=== PATIENT | male | born 1950 | race Two or more races ===

== ENCOUNTER → 2016-07-02 | Outpatient (CLI) | payer BC ==
[2013-11-04 14:42] VITALS: BP 134/77
[~2016-07-02] MED LIST: ATOR40TA59 PO; FENO160T PO; GADOBUTROL 7.5 MMOL/7.5 ML VIAL IV ONE
--- NOTE | 2016-07-02 10:54 | RAD ---
PROCEDURE MRI brain without and with contrast. HISTORY Headaches and blurred vision, lip numbness for 2 weeks TECHNIQUE Multiplanar, multisequential pre and post contrast MR imaging was performed of the brain. Contrast: 7.5 cc Gadavist COMPARISON September 05, 2015 FINDINGS Ventricles, sulci, cisterns are within normal limits in size and configuration. There is no intra-axial mass effect, midline shift, extra-axial fluid collection, or nodular parenchymal or leptomeningeal enhancement. There is no new focal signal abnormality of the brain parenchyma. There is preservation of the major arterial intracranial flow voids at skull base. There is very minimal patchy ethmoid air cell as well as mild left greater than right maxillary sinus mucosal thickening. Mastoid air cells are aerated. Cerebellar tonsils are normal in location. Nonspecific heterogeneous low signal of the marrow of nonexpanded clivus is stable. There is no new abnormality of the pineal gland or pituitary gland. IMPRESSION 1. There is no new intracranial abnormality. Electronically signed by: Anand Aguayo MD (Jul 02, 2016 10:52:40)
== END | disposition home or self-care (01) ==
LOC: MRI 09:35
PROVIDERS: ATTEND Internal Medicine
DX: R20.9 Unspecified disturbances of skin sensation (principal); R51 Headache
CPT/HCPCS: 70553; A9585

== ENCOUNTER → 2016-07-23 | Outpatient (CLI) | payer BC ==
[2013-11-04 14:42] VITALS: BP 134/77
[~2016-07-23] MED LIST changes: -GADOBUTROL 7.5 MMOL/7.5 ML VIAL IV ONE
--- NOTE | 2016-07-23 10:25 | RAD ---
Carotid ultrasound, 07/23/2016: History: Dizziness, TIA Duplex evaluation of the carotid arteries in neck was performed including grayscale, color-flow and spectral Doppler analysis. There is minimal intimal thickening and smooth plaquing at the carotid bifurcations. On the right, the peak systolic velocity in the internal carotid artery is 111 cm/s with an end-diastolic velocity of 45 cm/s. The internal carotid artery to common carotid artery ratio is 1.1. On the left, the peak systolic velocity in the internal carotid artery is 119 cm/s with an end-diastolic velocity of 38 cm/s. The internal carotid artery to common carotid artery ratio is 1.2. The Doppler findings suggest narrowing in the 0-50% diameter range. Antegrade flow is present in both vertebral arteries in the neck. IMPRESSION: No duplex evidence of a significant carotid stenosis in the neck. Note: Stenosis calculations for CT, MRA and conventional angiography are based upon determination of the distal ICA diameter in accordance with the NASCET methodology. Stenosis calculations for Doppler studies are derived from validated velocity criteria which are known to correlate with NASCET methodology of determining stenosis.
== END | disposition home or self-care (01) ==
LOC: US 06:53
PROVIDERS: ATTEND Internal Medicine Cardiovascular Disease
DX: I10 Essential (primary) hypertension (principal); G45.9 Transient cerebral ischemic attack, unspecified; E78.2 Mixed hyperlipidemia
CPT/HCPCS: 93880

== ENCOUNTER 2019-03-26 15:35 | Emergency (ER) | payer BC, OTHER ==
[~2019-03-26] VITALS: Ht 167.6 cm; Wt 74.8 kg
[2019-03-26 15:49] VITALS: BP 132/77
[2019-03-26] MEDS ORDERED: MUPI22OI2 TP (16:44)
--- NOTE | 2019-03-26 16:44 | PHYS DOC ---
Past Medical History Past Medical History: CVA, High Cholesterol, Hypertension Past Surgical History: No Surgical History Alcohol Use: None Drug Use: None Adult General Chief Complaint Chief Complaint: INSECT BITE HPI HPI Patient is a 69 year old male who presents to the emergency department with complaints of what he thinks is a spider bite to his right posterior neck. Patient states she was outside feeding his chickens when something stung or bit the right side of his neck. He denies any itching, numbness, tingling, bleeding, or drainage. Patient states he has not taken anything for relief of symptoms. He currently denies any pain. Patient states when everything for happened the stinger bite felt very sharp. He denies any shortness of breath, wheezing, or throat swelling. All other ROS is neg unless otherwise noted in HPI. Review of Systems Review of Systems See Above Allergies Allergies Allergies Coded Allergies Type Severity Reaction Last Updated Verified No Known Drug Allergies 11/04/13 No Physical Exam Physical Exam See Above Constitutional: Well developed, well nourished, no acute distress, non-toxic appearance. [] HENT: Normocephalic, atraumatic, bilateral external ears normal, oropharynx moist, no oral exudates, nose normal. [] Eyes: PERRLA, EOMI, conjunctiva normal, no discharge. [] Neck: Normal range of motion, no tenderness, supple, no stridor. [] Cardiovascular:Heart rate regular rhythm Lungs & Thorax: Respirations even and unlabored, no retractions, no respiratory distress Skin: Warm, dry, no rash; 1 cm diameter erythemic area with mild swelling noted to the right posterior lateral neck consistent with an insect bite with localized reaction. No urinary car area of drainage. [] Extremities: No cyanosis, ROM intact, no edema. [] Neurologic: Alert and oriented X 3, no focal deficits noted. [] Psychologic: Affect normal, judgement normal, mood normal. [] Current Patient Data Vital Signs Vital Signs Date Time Temp Pulse Resp B/P (MAP) Pulse Ox O2 Delivery O2 Flow Rate FiO2 03/26/19 15:49 98.0 71 16 132/77 (95) 97 Room Air 98.0 EKG EKG [] Radiology/Procedures Radiology/Procedures [] Course & Med Decision Making Course & Med Decision Making Pertinent Labs and Imaging studies reviewed. (See chart for details) [] Dragon Disclaimer Dragon Disclaimer This electronic medical record was generated, in whole or in part, using a voice recognition dictation system. Departure Departure Impression: Primary Impression: Insect bite of neck with local reaction Disposition: 01 HOME, SELF-CARE Condition: STABLE Referrals: JULIANE METCALF MD (PCP) Patient Instructions: Insect Bite, Yoyr-jz-Vufy Additional Instructions: Fill prescription and use it as directed. You may take Benadryl or use Benadryl cream as needed for itching. Apply cool packs or cool wash cloths to the area as needed for comfort. Follow-up with Your primary care doctor in 1-2 days to have site rechecked. Return to the ER if symptoms worsen or he develops a fever. Scripts Mupirocin (MUPIROCIN OINTMENT) 22 Gm Oint...g. 1 KIRK TP TID for WOUND CARE for 7 Days, #1 TUBE 0 Refills Prov: KRISTEN MANN APRN 03/26/19 Problem Qualifiers Primary Impression: Insect bite of neck with local reaction Encounter type: initial encounter Qualified Codes: S10.96XA - Insect bite of unspecified part of neck, initial encounter; W57.XXXA - Bitten or stung by nonvenomous insect and other nonvenomous arthropods, initial encounter KRISTEN MANN APRN Mar 26, 2019 16:44
== END 2019-03-26 16:51 | disposition home or self-care (01) ==
LOC: ER 15:35
DX: S10.96XA Insect bite of unspecified part of neck, initial encounter (principal); I10 Essential (primary) hypertension; E78.00 Pure hypercholesterolemia, unspecified; Z86.73 Personal history of transient ischemic attack (TIA), and cerebral infarction without residual deficits; W57.XXXA Bitten or stung by nonvenomous insect and other nonvenomous arthropods, initial encounter; Y93.89 Activity, other specified; Y92.89 Other specified places as the place of occurrence of the external cause; Y99.8 Other external cause status
CPT/HCPCS: 99283

== ENCOUNTER → 2020-09-02 | Outpatient (CLI) | payer MEDICARE ==
[~2020-09-02] MED LIST changes: +MUPI22OI2 TP
--- NOTE | 2020-09-02 16:44 | CARD ---
MR#: [id number] Date of Study: 09/02/2020 Ordering Physician: COURTNEY CA, Referring Physician: COURTNEY CA, Tech: Lise Lin [facility] APPROVED REPORT EXAM: Two-dimensional and M-mode echocardiogram with Doppler and color Doppler. Other Information Quality : AverageHR: 82bpm INDICATION Arrhythmia abnormal EKG RISK FACTORS Hypertension Hyperlipidemia 2D DIMENSIONS RVDd3.3 (2.9-3.5cm)Left Atrium(2D)2.8 (1.6-4.0cm) IVSd1.1 (0.7-1.1cm)Aortic Root(2D)3.1 (2.0-3.7cm) LVDd4.9 (3.9-5.9cm)LVOT Diameter2.0 (1.8-2.4cm) PWd1.0 (0.7-1.1cm)LVDs2.9 (2.5-4.0cm) FS (%) 40.0 %SV77.7 ml LVEF(%)70.5 (>50%) Aortic Valve AoV Peak Vicente.131.6cm/sAoV VTI27.3cm AO Peak GR.6.9mmHgLVOT Peak Vicente.121.1cm/s AO Mean GR.4mmHgAVA (VMAX)2.81cm2 Mitral Valve MV E Uigwvguf86.5cm/sMV DECEL HPWB709pg MV A Vlugsfto93.9cm/sE/A Ratio0.9 Pulmonary Valve PV Peak Zrcrdmet475.6cm/s Tricuspid Valve TR P. Howtjbfy351vs/sRAP ERZUAWTW0paYy TR Peak Gr.04ttHaGJCZ52eiOi Pulmonary Vein S1 Sphbxxvh37.7cm/sD2 Jflflmqf38.6cm/s PVa [id number] LEFT VENTRICLE The left ventricle is normal size. There is mild concentric left ventricular hypertrophy. The left ve ntricular systolic function is normal and the ejection fraction is within normal range. The Ejection Fraction is 55%. There is normal LV segmental wall motion. Transmitral Doppler flow pattern is Grade I-abnormal relaxation pattern. RIGHT VENTRICLE The right ventricle is normal size. There is normal right ventricular wall thickness. The right ventr icular systolic function is normal. ATRIA The left atrium size is normal. The right atrium size is normal. The interatrial septum is intact wit h no evidence for an atrial septal defect or patent foramen ovale as noted on 2-D or Doppler imaging. AORTIC VALVE The aortic valve is normal in structure and function. Doppler and Color Flow revealed no significant aortic regurgitation. There is no significant aortic valvular stenosis. Calculated aortic valve area is 2.8 cm2 with maximum pressure gradient of 7 mmHg and mean pressure gradient of 4 mmHg. MITRAL VALVE The mitral valve is normal in structure and function. There is no evidence of mitral valve prolapse. There is no mitral valve stenosis. Doppler and Color-flow revealed trace mitral regurgitation. TRICUSPID VALVE The tricuspid valve is normal in structure and function. Doppler and Color Flow revealed trace tricus pid regurgitation with an estimated PAP of 31 mmHg. There is no tricuspid valve stenosis. PULMONIC VALVE Doppler and Color Flow revealed trace pulmonic valvular regurgitation. There is no pulmonic valvular stenosis. GREAT VESSELS The aortic root is normal in size. The ascending aorta is normal in size. The IVC is normal in size a nd collapses >50% with inspiration. PERICARDIAL EFFUSION There is no evidence of significant pericardial effusion. Critical Notification Critical Value: No <Conclusion> The left ventricular systolic function is normal and the ejection fraction is within normal range. Th e Ejection Fraction is 55%. There is normal LV segmental wall motion. Signed by : Jose Raza, Electronically Approved : 09/02/2020 16:44:31
--- NOTE | 2020-09-02 16:56 | RAD ---
MR#: [id number] Date of Study: 09/02/2020 Ordering Physician: COURTNEY CA Referring Physician: GEOFFREY BRAVO Tech: RT Bala (R) (N) APPROVED REPORT Test Type: Exercise Stress Nurse/Tech: Phuong Yancey R.N. Test Indications: abnormal ECG Cardiac History: htn Medications: see ehr Medical History: see ehr Resting ECG: sr with ST seg depression Resting Heart Rate: 62 bpm Resting Blood Pressure: 119/78mmHg Pretest Chest Pain: No chest pain Nurse/Tech Notes lungs cta, heart tones regular Consent: The procedure was explained to the patient in lay terms. Informed consent was witnessed. Juan eout was entered into [employer]. History and Stress Test performed by RT Asad (Jered) (N) Stress Symptoms No chest pain or symptoms. POST EXERCISE Reason for Termination: Reached target heart rate Target HR: Yes Max HR: 136 bpm 89% of Maximum Predicted HR: 152 bpm Exercise duration: 8:00 min:sec, 3 Stage Exercise capacity: 10.0METs Max Blood Pressure: 159/61mmHg Blood Pressure response to exercise: Normal blood pressure response during stress. Heart Rate response to exercise: normal Chest Pain: No. Arrhythmia: No. ST Change: Yes. ST depression deepened during exercise, recovered to baseline INTERPRETATION Stress EKG Conclusion: Mildly abnormal stress EKG with inferolateral [address] segment depression sugge stive of microvascular ischemia. Imaging Protocol IMAGE PROTOCOL: Rest Tc-99m/stress Tc-99m 1 day Rest: Stress: Viability: Radiopharm.Tc99m GdxvzoqvvUw41f Sestamibi Tyjb17vRk 31.5mCi Duration 15min. 15min. Img Date 09/02/2020 09/02/2020 Inj-Img Ycrd10loy. 60min. Rest Admin Site:IV - Right AntecubitalAdministrator:RT Bala (Jered)(N) Stress Admin Site: IV - Right AntecubitalAdministrator: RT Catia Kamara)(N) STRESS DATA End Diast. Vol.83.0mlAv. Heart Rate90.0bpm End Syst. Vol.10.0mlCO Index BSA0.0L/min Myocardial Ywil137.0gEject. Kfdcxacv35.0% Stress Rates Pk. Fill Rate3.68EDV/secLVtime Pk. Fill 109.38msec Pk. Empty Rate5.32ESV/secLVtime Pk. Hyaat930.03msec 1/3 Pk. Fill2.40EDV/sec Stress Scores Regional WT0.00Summed WT0.00 Regional WM0.00Summed WM0.00 The rest and stress images show normal perfusion, normal contraction and thickening. LV Perf. Quant 17 Seg. SSS0.00 17 Seg. SRS0.00 17 Seg. SDS0.00 Stress Defect Extent (% LAD)0.00Rest Defect Extent (% LAD)0.00Rev. Defect Extent (% LAD)0.00 Stress Defect Extent (% LCX) 0.00Rest Defect Extent (% LCX)0.00Rev. Defect Extent (% LCX)0.00 Stress Defect Extent (% RCA)0.00Rest Defect Extent (% RCA)0.00Rev. Defect Extent (% RCA)0.00 Stress Defect Extent (% ELIE)0.00Rest Defect Extent (% ELIE)0.00Rev. Defect Extent (% ELIE)0.00 Other Information Quality:Good Risk Assessment: Low Risk Conclusion 1. Mildly abnormal EKG response at peak stress with 2mm upsloping ST segment depression in the infero lateral leads. 2. Good exercise capacity. 3. Normal perfusion at stress/rest. 4. Normal EF at > 60% 5. Low risk study. Signed by : Jose Raza, Electronically Approved : 09/02/2020 16:56:01
== END ==
LOC: NM 08:08
PROVIDERS: ATTEND Internal Medicine Cardiovascular Disease
DX: I11.9 Hypertensive heart disease without heart failure (principal); R94.31 Abnormal electrocardiogram [ECG] [EKG]; I49.9 Cardiac arrhythmia, unspecified
CPT/HCPCS: 78452; 93017; 93306; A9500